=== PATIENT | male | born 1950 | race Caucasian/White ===

== ENCOUNTER → 2019-01-24 | Outpatient (CLI) | payer OTHER ==
--- NOTE | 2019-01-26 11:03 | P ---
[facility] [place] [address] PROCEDURE REPORT Name: RAYJORDAN Paige Room #: REG GAY Thomas#: [id number] Admission: 01/24/19 Attend Phys: Agustin Hawkins Discharge: Date of : 46 Report #: [id number] THIS REPORT FOR: //name// CC: DAISHA Gardner DATE OF SERVICE: 01/24/2019 PROCEDURE PERFORMED: Colonoscopy with biopsies. HISTORY OF PRESENT ILLNESS: The patient is a 68-year-old male with a history of polyps approximately 5 years ago, he is here for repeat colonoscopy. Denies any symptoms. Bowel movements have been normal. No family history of colon cancer. DESCRIPTION OF PROCEDURE: The risks and benefits of the procedure were explained to the patient, those risks including but not limited to bleeding, perforation and the risk of sedation. He understood these risks and gave informed consent. Sedation was given using propofol per anesthesia. Next, a digital rectal exam was initially performed, which was normal. Next, using a standard Olympus colonoscope, the scope was placed in the patient's anus and advanced under direct vision to the cecum. The overall prep was excellent. The cecum and ileocecal valve were normal. In the ascending colon, a 5 mm sessile polyp was noted. This was removed with cold forceps, otherwise normal. The transverse colon was normal. Multiple diverticula were noted in the descending and sigmoid colon, no evidence of inflammation. The rectal mucosa was normal. On retroflexion, small nonbleeding internal hemorrhoids were noted. The scope was then withdrawn and the procedure terminated. The patient tolerated the procedure well. IMPRESSION: 1. Small colonic polyp. 2. Left-sided diverticulosis. 3. Small internal hemorrhoids. 4. Otherwise, normal colonoscopy. RECOMMENDATIONS: 1. Await biopsy results. 2. If polyp is hyperplastic, repeat in 10 years; if adenomatous polyp, repeat in 5 years. [facility] [address] [place] [address] PROCEDURE REPORT Name: JORDAN BELL Room #: [facility]#: [id number] Admission: 01/24/19 Attend Phys: Agustin Hawkins Discharge: Date of : 46 Report #: [id number] Thank you for allowing me to participate in his care. <ELECTRONICALLY SIGNED> By: Agustin Hector MD 01/26/19 [id number] Agustin Hector MD /nt
--- NOTE | 2019-01-26 14:07 | PATH ---
[facility] [address] [place] [address] PATHOLOGY RPT PROCEDURE Name: JORDAN BELL Room #: REG [facility].#: [id number] Admission: 01/24/19 Date of : 46 Discharge: Report #: [id number] Path Case #: [id number] [facility] Accession Number: [id number] . 01 Material submitted: . colon - BIOPSY POLYP AT ASCENDING COLON. Modifiers: ascending . 01 Clinical history: . Preop DX: Hx polyps Postop DX: Colon polyp, diverticulosis . 02 Diagnosis: Colon, ascending, biopsy: - Adenomatous polyp. (SKM:nakul; 01/26/2019) QMS/01/26/2019 . 02 Electronically signed: . Noman Aldrich MD, Pathologist NPI- [id number] . 01 Gross description: . Received in formalin labeled "Bell, Vincent, Bx polyp at ascending colon," are five segments of brown soft tissue measuring 0.5 x 0.4 x 0.2 cm in aggregate dimensions and ranging from 0.2 to 0.3 cm in maximum dimension. The specimen is submitted entirely in cassette A1. ([facility]; 01/25/2019) XDC/XDC . 02 Pathologist provided ICD-10: D12.2 . 02 CPT . 182323 Specimen Comment: A courtesy copy of this report has been sent to Specimen Comment: [phone], . Specimen Comment: Report sent to and Performed at: [address], [place] [id number] MD Aidan Wills MD Phone: [phone] Performed at: [address] [id number] MD Cielo Cabrera MD Phone: [phone]
== END | disposition home or self-care (01) ==
LOC: GI 09:17
DX: Z12.11 Encounter for screening for malignant neoplasm of colon (principal); Z86.010 Personal history of colon polyps; D12.2 Benign neoplasm of ascending colon; K57.30 Diverticulosis of large intestine without perforation or abscess without bleeding; K64.8 Other hemorrhoids
CPT/HCPCS: 62110; 62900